=== PATIENT | female | born 1990 | race Caucasian/White ===

== ENCOUNTER 2020-12-09 21:44 | Emergency (ER) | payer SELFPAY ==
[~2020-12-09] VITALS: Ht 165.1 cm; Wt 61.4 kg
[~2020-12-09 21:44] MED LIST: ZPAK PO
[2020-12-09 22:01] VITALS: BP 120/90; Ht 165.1 cm; Wt 61.4 kg
[2020-12-09] MEDS ORDERED: ULTRAM50 MG PO (22:03)
[2020-12-09] MEDS ORDERED: MIRAPEX ER0.75 MG PO (22:03)
[2020-12-09] MEDS ORDERED: CYCLOBENZAPRINE10 MG PO (22:03)
[2020-12-09 22:23] LABS: BILIRUBIN NEGATIVE (NEGATIVE); KETONE NEGATIVE (NEGATIVE); NITRITE NEGATIVE (NEGATIVE); UROBILINOGEN NORMAL mg/dL (< 2)
[2020-12-09 22:24] LABS: BACTERIA FEW HPF (NONE SEEN); SQUAMOUS EPITHELIAL 0-5 HPF (0-4); WHITE CELLS - URINE 0-5 HPF (0-4)
[2020-12-09 22:52] LABS: BASOPHILS 0.3 % (0-2); EOSINOPHILS 3.2 % (0-7); HEMATOCRIT 40.2 % (36.0-48.0); HEMOGLOBIN 13.5 g/dL (12-16); IMMATURE GRANULOCYTES 0.3 % (0-5); LYMPHOCYTES 22.5 % (15-50); MCH 29.4 pg (26.0-34.0); MCHC 33.6 g/dL (31.0-37.0); MCV 87.6 fL (80.0-100.0); MEAN PLATELET VOLUME 9.4 fL (7.4-10.4); MONOCYTES 12.4 % (2-11); NEUTROPHIL ABS# 4.36 10x3/uL (1.56-6.13); NEUTROPHILS 61.3 % (40-80); RBC 4.59 10x6/uL (4.00-5.40); RDW 12.4 % (11.5-14.5); WBC 7.1 10x3/uL (4.8-10.8)
[2020-12-09 22:55] LABS: HCG SERUM NEGATIVE (NEGATIVE)
[2020-12-09 22:58] LABS: CALC OSMOLALITY 280 mosm/kg (275-300); CALCIUM 8.8 mg/dL (8.5-10.1); CARBON DIOXIDE 27.3 mmol/L (21.0-32.0); CHLORIDE - SERUM 104 mmol/L (98-107); CREATININE - SERUM 0.8 mg/dL (0.6-1.3); GLUCOSE 86 mg/dL (74-106); POTASSIUM - SERUM 3.5 mmol/L (3.5-5.1); SODIUM 142 mmol/L (136-145); UREA NITROGEN 11 mg/dL (7-18); eGFR NON AFRICAN AMERICAN 89 mL/min (90-120)
[2020-12-09 22:59] LABS: PLATELET COUNT 315 10x3/uL (130-400)
[2020-12-09 23:05] LABS: ALBUMIN 4.1 g/dL (3.4-5.0); ALKALINE PHOSPHATASE 57 U/L (30-120); ALT (SGPT) 15 U/L (10-68); BILIRUBIN - TOTAL 0.18 mg/dL (0.2-1.3); PROTEIN - SERUM 7.8 g/dL (6.4-8.2)
== END 2020-12-10 00:24 | disposition home or self-care (01) ==
LOC: D.ER 21:44
PROVIDERS: Family Medicine
DX: N93.9 Abnormal uterine and vaginal bleeding, unspecified (principal); N80.9 Endometriosis, unspecified